=== PATIENT | female | born 1945 | race Caucasian/White ===

== ENCOUNTER → 2016-06-12 | Outpatient (CLI) | payer MEDICARE | LOC: RAD 11:45 | DX: M25.562 Pain in left knee (principal) | CPT/HCPCS: 73564 ==

== ENCOUNTER → 2020-07-28 | Outpatient (CLI) | payer MEDICARE, OTHER | LOC: US 08:56 | DX: R17 Unspecified jaundice (principal); K82.8 Other specified diseases of gallbladder | CPT/HCPCS: 76700 ==

== ENCOUNTER → 2020-08-25 | Outpatient (CLI) | payer MEDICARE, OTHER | LOC: MRI 12:20 | DX: D49.0 Neoplasm of unspecified behavior of digestive system (principal) | CPT/HCPCS: 36415; 82565 ==

== ENCOUNTER 2021-05-10 13:35 | Emergency (ER) | payer MEDICARE, MEDICAID ==
[2021-05-10 14:48] LABS: HEMOGLOBIN 16.1 gm/dl (12.3-15.3); RED BLOOD COUNT 4.96 M/UL (4.00-5.10); WHITE BLOOD COUNT 10.1 K/UL (4.5-11.0)
[2021-05-10 15:44] LABS: BUN/CREATININE RATIO 13 (0-10)
[2021-05-10] MEDS ORDERED: CLEOCIN HCL300 MG PO (16:11)
== END 2021-05-10 16:34 | disposition home or self-care (01) ==
LOC: ER1 13:35
PROVIDERS: Physician Assistant
DX: L03.116 Cellulitis of left lower limb (principal); I10 Essential (primary) hypertension; F17.200 Nicotine dependence, unspecified, uncomplicated; Z88.0 Allergy status to penicillin
CPT/HCPCS: 73630; 80053; 83605; 84550; 85025; 85652; 86140; 99283

== ENCOUNTER → 2021-05-14 | Outpatient (CLI) | payer MEDICARE, OTHER ==
[~2021-05-14] MED LIST: CLEOCIN HCL300 MG PO
== END ==
LOC: KOH-I 15:41
DX: M25.572 Pain in left ankle and joints of left foot (principal); L03.116 Cellulitis of left lower limb; M89.8X6 Other specified disorders of bone, lower leg; M79.89 Other specified soft tissue disorders; R93.7 Abnormal findings on diagnostic imaging of other parts of musculoskeletal system
CPT/HCPCS: 73610; 73630

== ENCOUNTER → 2021-05-18 | Outpatient (CLI) | payer MEDICARE | LOC: US 13:30 | DX: R60.0 Localized edema (principal) | CPT/HCPCS: 93925; 93970 ==

== ENCOUNTER → 2021-05-25 | Outpatient (CLI) | payer MEDICARE | LOC: KOH-I 12:00 | DX: S82.892A Other fracture of left lower leg, initial encounter for closed fracture (principal) | CPT/HCPCS: 73700 ==

== ENCOUNTER → 2021-06-28 | Outpatient (CLI) | payer MEDICARE, OTHER | LOC: KOH-I 13:15 | DX: S92.252A Displaced fracture of navicular [scaphoid] of left foot, initial encounter for closed fracture (principal) | CPT/HCPCS: 73630 ==

== ENCOUNTER → 2021-09-24 | Outpatient (CLI) | payer MEDICARE, OTHER | LOC: US 08:30 | DX: R17 Unspecified jaundice (principal); K82.8 Other specified diseases of gallbladder | CPT/HCPCS: 76700 ==